=== PATIENT | female | born 1960 | race Caucasian/White ===

== ENCOUNTER → 2019-02-03 | Outpatient (CLI) | payer OTHER ==
--- NOTE | 2019-02-03 15:03 | NM ---
EXAMINATION TYPE: NM hepatobiliary w CCK DATE OF EXAM: 02/03/2019 COMPARISON: NONE HISTORY: Chronic cholecystitis per order. Epigastric and abdominal pain with increased appetite heart burn and reflux-like symptoms per patient. TECHNIQUE: After the intravenous administration of 5.0 mCi Tc 99m Mebrofenin hepatobiliary scintigrap hy is performed. Immediate images post injection. FINDINGS: There is satisfactory initial accumulation of tracer by the liver. The gallbladder is visualized wit hin 15 minutes. The small bowel activity is noted within 20 minutes. At one hour CCK was administer ed, patient was injected with 1.32 mcg of Kinevac, and gallbladder ejection fraction is calculated at 93 %, not deviated from the normal range. Therefore there is no scintigraphic evidence of cystic or common bile duct obstruction to suggest acute cholecystitis . Overall elevated ejection fraction is consistent with chronic cholecystitis and/or gallbladder dyskinesia. IMPRESSION: Ejection fraction is 93%, elevated from the normal range, scintigraphic findings correlat e with underlying gallbladder dyskinesia.
== END | disposition home or self-care (01) ==
LOC: RADNMMAIN 13:07
PROVIDERS: ATTEND Surgery
DX: K81.1 Chronic cholecystitis (principal)
CPT/HCPCS: 78227; A9537; J2805

== ENCOUNTER 2019-02-10 08:04 | Day surgery (SDC) | payer OTHER ==
[2019-02-05 16:24] VITALS: BMI 24.0
[~2019-02-10 08:04] MED LIST: DEXAMETHASONE SOD PHOSPHATE 10 MG/ML 1 ML VIAL IV ONE; HEPARIN SODIUM,PORCINE 5,000 UNIT/ML 1 ML VIAL SQ ONE; LACTATED RINGERS 1,000 ML IV SCH; LIDOCAINE 1% 20 ML VIAL (10MG/ML) FOR IV START INTRADERMA PRN; ONDANSETRON 4 MG/2 ML VIAL IVP ONE; SCOPOLAMINE 1.5MG/72HR PATCH TRANSDERM ONE; ceFAZolin IN SWFI 2 GM/20 ML SYRINGE IVP ONE
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
[2019-02-10] MEDS ORDERED: SUCCINYLCHOLINE CHLORIDE 100 MG/5 ML SYR IV ONE (09:13)
[2019-02-10] MEDS ORDERED: fentaNYL (PF) 50 MCG/ML 2 ML AMP ONE (09:13)
[2019-02-10] MEDS ORDERED: PROPOFOL 10 MG/ML 20 ML VIAL IV ONE (09:13)
[2019-02-10] MEDS ORDERED: ePHEDrine SULFATE/0.9% NACL/PF 50 MG/5 ML SYRINGE IV ONE (09:13)
[2019-02-10] MEDS ORDERED: LIDOCAINE 1% INJ 10MG/ML (20 ML MDV) ONE (09:13)
[2019-02-10] MEDS ORDERED: BUPIVACAINE-EPI 0.5%-1:200,000 10 ML VIAL SQ ONE (09:39)
[2019-02-10 10:19] VITALS: TEMP 97
--- NOTE | 2019-02-10 10:26 | P.OP ---
Date of Procedure: 02/10/19 Preoperative Diagnosis: Cholecystitis Postoperative Diagnosis: Cholecystitis Procedure(s) Performed: Laparoscopic cholecystectomy Anesthesia: ALEN Surgeon: Edgar Miles Estimated Blood Loss (ml): 5 Pathology: other (Gallbladder) Condition: stable Disposition: PACU Description of Procedure: The patient was placed on the operating table. The patient received a general endotracheal tube anesthesia. The patients abdomen was prepped and draped in the usual sterile fashion. Through an infraumbilical stab incision, the fascia of the anterior abdominal wall was grasped with a pair of Kochers and then the Veress needle was placed in the peritoneal cavity. Position of the Veress needle was confirmed with positive drop test. The abdomen was then insufflated. After adequate insufflation, the 10 mm trocar was placed in the peritoneal cavity. Following this the laparoscope was placed in the peritoneal cavity. The patient was placed in the head-up, right side up position and then a 5 mm trocar was placed in the right lateral and right subcostal position under direct visualization. A 8 mm trocar was placed in the epigastric position. The gallbladder was grasped in the fundus and infundibulum. Traction on the gallbladder was placed in the lateral and the cephalad positions. The triangle of Calot was visualized.. The cystic duct was bluntly dissected until the union of the cystic duct and common bile duct was seen. A critical view of safety was achieved. The cystic duct was then divided and sealed with the Harmonic scissors. A PDS Endoloop was then placed throughout the cystic duct stump. The cystic artery divided and sealed with the Harmonic scissors. The gallbladder was then removed from the liver bed using Harmonic scissors. The gallbladder was then extracted through the epigastric port site. Operative field was checked for any bleeding spots and Harmonic scissors was used to coagulate the liver bed. The abdomen was irrigated. The trocars were removed. The skin was closed using interrupted 3-0 Vicryl suture. Dermabond dressing were applied. The patient tolerated the procedure well.
[2019-02-10] MEDS: HYDROmorphone 0.5 MG/0.5 ML SYRINGE IVP PRN ×2 (10:37→10:42)
[2019-02-10 11:07] VITALS: RESP 18
[2019-02-10 11:49] VITALS: BP 127/88; PULSE 88
== END 2019-02-10 12:13 | disposition home or self-care (01) ==
LOC: OR 08:04
PROVIDERS: ATTEND Surgery
DX: K81.1 Chronic cholecystitis (principal); J44.9 Chronic obstructive pulmonary disease, unspecified; K21.9 Gastro-esophageal reflux disease without esophagitis; E78.5 Hyperlipidemia, unspecified; I10 Essential (primary) hypertension; E07.9 Disorder of thyroid, unspecified; M54.10 Radiculopathy, site unspecified; Z79.82 Long term (current) use of aspirin; Z79.890 Hormone replacement therapy; Z79.891 Long term (current) use of opiate analgesic; Z79.899 Other long term (current) drug therapy; Z96.1 Presence of intraocular lens; Z86.718 Personal history of other venous thrombosis and embolism; Z87.820 Personal history of traumatic brain injury; Z87.891 Personal history of nicotine dependence; Z88.5 Allergy status to narcotic agent; Z88.8 Allergy status to other drugs, medicaments and biological substances
CPT/HCPCS: 88304; 47562; J1644; J1100; J2405; J2001; J3010; J0330; J2704; J1170; J0690

== ENCOUNTER → 2019-06-26 | Outpatient (CLI) | payer OTHER ==
--- NOTE | 2019-06-30 10:20 | MM ---
Reason for exam: screening (asymptomatic). Last mammogram was performed 1 year and 1 month ago. History: Patient is postmenopausal. Physical Findings: A clinical breast exam by your physician is recommended on an annual basis and results should be correlated with mammographic findings. MG 3D Screening Mammo W/Cad Bilateral CC and MLO view(s) were taken. Prior study comparison: May 13, 2018, mammogram. May 10, 2017, mammogram. There are scattered fibroglandular densities. No significant changes when compared with prior studies. ASSESSMENT: Benign, BI-RAD 2 RECOMMENDATION: Routine screening mammogram of both breasts in 1 year.
== END | disposition home or self-care (01) ==
LOC: RADMAMWWP 13:20
PROVIDERS: ATTEND Family Medicine
DX: Z12.31 Encounter for screening mammogram for malignant neoplasm of breast (principal)
CPT/HCPCS: 77063; 77067

== ENCOUNTER 2019-07-03 22:26 | Observation (INO) | payer OTHER ==
[2019-07-03] MEDS ORDERED: MORPHINE SULFATE 4 MG/ML SYRINGE IV STA (23:12)
[2019-07-03] MEDS ORDERED: SODIUM CHLORIDE 0.9% 1,000 ML IV STA (23:12)
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
[2019-07-03 23:39] LABS: Basophils % (A) 1 %; Eosinophils # (A) 0.2 k/uL (0-0.7); Eosinophils % (A) 9 %; HCT 38.5 % (34.0-46.0); HGB 12.6 gm/dL (11.4-16.0); Lymphocytes # (A) 0.9 k/uL (1.0-4.8); Lymphocytes % (A) 32 %; MCH 30.5 pg (25.0-35.0); MCHC 32.8 g/dL (31.0-37.0); MCV 93.1 fL (80.0-100.0); Mean Platelet Volume 6.8; Monocytes # (A) 0.2 k/uL (0-1.0); Monocytes % (A) 5 %; Neutrophils # (A) 1.4 k/uL (1.3-7.7); Neutrophils % (A) 50 %; Platelet Count 160 k/uL (150-450); RBC 4.14 m/uL (3.80-5.40); RDW 13.2 % (11.5-15.5); WBC 2.7 k/uL (3.8-10.6)
[2019-07-03 23:47] LABS: INR 0.9 (<1.2); Partial Thromboplastin Time 24.3 sec (22.0-30.0)
[2019-07-03 23:52] LABS: ALT 39 U/L (9-52); AST 33 U/L (14-36); African American GFR (CKD) >90 (>60 ml/min/1.73 sqM); Alkaline Phosphatase 64 U/L (38-126); Anion Gap 9 mmol/L; Blood Urea Nitrogen 15 mg/dL (7-17); Calcium 9.2 mg/dL (8.4-10.2); Carbon Dioxide 28 mmol/L (22-30); Chloride 102 mmol/L (98-107); Glucose 118 mg/dL (74-99); Magnesium 2.1 mg/dL (1.6-2.3); Sodium 139 mmol/L (137-145); Total Bilirubin 0.3 mg/dL (0.2-1.3); Total Protein 6.8 g/dL (6.3-8.2)
--- NOTE | 2019-07-04 00:42 | CT ---
History: ITS.REASON CT Reason: pain Exam: CTA CHEST MIP images obtained Technique more: DLP is 1321.3 mGy-cm. Technique more: This CT exam was performed using one or more of the following dose reduction techniques: automated exposure control, adjustment of the mA and/or kV according to patient size, and/or use of iterative reconstruction technique. Comparison: None available FINDINGS: No evidence of filling defect to suggest pulmonary embolism. Ectatic thoracic aorta appears within limits. No pericardial or pleural effusion. Central airways are patent without focal consolidation. Basilar atelectasis, mild pulmonary emphysema and chronic interstitial changes. Thoracolumbar scoliosis, spondylosis, discogenic change. IMPRESSION: No evidence of filling defect to suggest pulmonary embolism. Central airways are patent without focal consolidation. Basilar atelectasis, mild pulmonary emphysema and chronic interstitial changes.
--- NOTE | 2019-07-04 00:52 | CT ---
History: ITS.REASON CT Reason: pain Exam: CT ABDOMEN + PELVIS With Contrast Technique more: DLP is 1321.3 mGy-cm. Technique more: This CT exam was performed using one or more of the following dose reduction techniques: automated exposure control, adjustment of the mA and/or kV according to patient size, and/or use of iterative reconstruction technique. Comparison: None available FINDINGS: Abdominal solid organs and abdominal aorta appear within limits. Aortoiliac atherosclerotic calcification. Gallbladder is not identified. No bowel dilation or free air. Moderate proximal colonic stool without wall thickening or pericolonic inflammatory change. The appendix appears within limits without secondary signs. The bladder appears within limits. No free fluid. The right ovary is not well distinguished from adjacent bowel. The left ovary and uterus appear within limits. Thoracolumbar scoliosis, spondylosis, discogenic change. Grade 1 anterolisthesis L4 on L5 with bilateral foraminal stenosis. IMPRESSION: No evidence of acute process. Moderate proximal colonic stool without wall thickening or pericolonic inflammatory change.
[2019-07-04] MEDS ORDERED: ASPIRIN 81 MG PO STA (01:10)
[2019-07-04] MEDS ORDERED: MORPHINE SULFATE 4 MG/ML SYRINGE IV PRN (01:10)
[2019-07-04] MEDS ORDERED: NITROGLYCERIN SL TABS 0.4 MG TAB SUBLINGUAL PRN (01:10)
[2019-07-04] MEDS ORDERED: ASPIRIN 81 MG PO SCH (10:45)
[2019-07-04] MEDS: AMOXIC-POT CLAV 875-125MG 1 EACH TAB PO SCH ×2 (11:42→20:38)
[2019-07-04] MEDS: MUPIROCIN 2% OINT 22 GM TUBE TOPICAL SCH ×3 (11:42→20:38)
[2019-07-04] MEDS: CEPHALEXIN 500 MG CAP PO SCH ×4 (11:43→20:38)
[2019-07-04] MEDS ORDERED: LEVOTHYROXINE 75 MCG TAB PO ONE (13:31)
[2019-07-04] MEDS ORDERED: NIFEdipine XL 30 MG TAB.ER.24 PO STA (13:31)
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
[2019-07-04] MEDS: PANTOPRAZOLE 40 MG TABLET PO SCH (17:15)
[2019-07-04 17:39] LABS: Basophils # (A) 0.1 k/uL (0-0.2); Basophils % (A) 2 %; Eosinophils # (A) 0.2 k/uL (0-0.7); Eosinophils % (A) 6 %; HCT 41.2 % (34.0-46.0); HGB 13.1 gm/dL (11.4-16.0); Lymphocytes # (A) 0.9 k/uL (1.0-4.8); Lymphocytes % (A) 27 %; MCH 30.7 pg (25.0-35.0); MCHC 31.7 g/dL (31.0-37.0); MCV 96.8 fL (80.0-100.0); Monocytes # (A) 0.2 k/uL (0-1.0); Monocytes % (A) 6 %; Neutrophils # (A) 1.7 k/uL (1.3-7.7); Neutrophils % (A) 54 %; Platelet Count 154 k/uL (150-450); RBC 4.25 m/uL (3.80-5.40); RDW 13.4 % (11.5-15.5); WBC 3.2 k/uL (3.8-10.6)
[2019-07-04 17:52] LABS: ALT 49 U/L (9-52); AST 42 U/L (14-36); African American GFR (CKD) >90 (>60 ml/min/1.73 sqM); Albumin 3.9 g/dL (3.5-5.0); Alkaline Phosphatase 66 U/L (38-126); Amylase 146 U/L (30-110); Anion Gap 4 mmol/L; Blood Urea Nitrogen 12 mg/dL (7-17); Calcium 9.1 mg/dL (8.4-10.2); Carbon Dioxide 32 mmol/L (22-30); Chloride 106 mmol/L (98-107); Glucose 94 mg/dL (74-99); Sodium 142 mmol/L (137-145); Total Bilirubin 0.3 mg/dL (0.2-1.3); Total Protein 6.9 g/dL (6.3-8.2)
[2019-07-04] MEDS: BACLOFEN 10 MG TAB PO SCH (20:38)
[2019-07-04] MEDS: GABAPENTIN 100 MG CAP PO SCH (20:38)
--- NOTE | 2019-07-04 22:59 | CONS ---
CONSULTATION DATE OF SERVICE: Alma Sifuentes is a 59-year-old lady who comes into the hospital with episode of chest discomfort. She apparently had an abdominal discomfort, then had some chest pressure. The pain lasted about 15 seconds or so and kept coming and going. Sometimes it was sharp in nature. She felt concerned and came into the hospital. 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 Her pain initially was on the right side of the chest, then went into the left shoulder and in the abdomen and also had an episode of nausea. Her lipase is elevated. She has no further chest pain. EKG is unremarkable. She is resting comfortably without symptoms. PAST MEDICAL HISTORY: Past medical history is remarkable for: 1. COPD. 2. Hypertension. 3. Hyperlipidemia. 4. Hypothyroidism. 5. Gastroesophageal reflux disease. 6. She is status post cholecystectomy. 7. Orthopedic surgery. 8. Tonsillectomy. MEDICATIONS: Medications at home include: 1. Aspirin. 2. Gabapentin. 3. Levothyroxine 75 mcg daily. 4. Mevacor 20 mg daily. 5. Magnesium supplements. 6. Nifedipine 30 mg daily. 7. Calcium supplements. 8. Turmeric root. ALLERGIES: Allergic to VERSED and CODEINE. PHYSICAL EXAMINATION: Blood pressure is 128/70. Pulse rate is 68 per minute, regular. HEENT unremarkable. Fundus was not examined by me. Neck is supple. No JVD. I do not hear a carotid bruit. There is no thyromegaly. Heart exam reveals S1, S2 heard normally. No rub, murmur or gallop. Lungs are clear. Abdomen is soft, nontender. Lower extremities reveal normal pulses. No edema. Central nervous system is normal EKG revealed sinus mechanism, no acute changes. LABORATORY DATA: Laboratory data revealed unremarkable troponins, elevated lipase. IMPRESSION: 1. Atypical chest pain. 2. Apparently per patient negative stress test within the last year or so. I will verify and look at the stress test report from [place]. 3. Hypertension. 4. Hyperlipidemia. 5. Hypothyroidism. 6. Abdominal discomfort, probably gastritis or pancreatitis, which has resolved. RECOMMENDATIONS: No intervention is necessary from a cardiac standpoint. Patient can safely be discharged and follow up with her ditch worker and PCP. I will see her as needed. Thank you very much for the consult. CELINE / FADUMO: [id number] /
[2019-07-05] MEDS: PANTOPRAZOLE 40 MG TABLET PO SCH (05:17)
[2019-07-05 06:00] LABS: Cholesterol 171 mg/dL (<200); HDL Cholesterol 44 mg/dL (40-60); LDL Cholesterol,Calculated 106 mg/dL (0-99); Triglycerides 103 mg/dL (<150)
[2019-07-05] MEDS ORDERED: LEVOTHYROXINE 75 MCG TAB PO SCH (06:30)
[2019-07-05] MEDS: AMOXIC-POT CLAV 875-125MG 1 EACH TAB PO SCH (08:14)
[2019-07-05] MEDS: GABAPENTIN 100 MG CAP PO SCH (08:14)
[2019-07-05] MEDS: CEPHALEXIN 500 MG CAP PO SCH (08:14)
[2019-07-05] MEDS: MUPIROCIN 2% OINT 22 GM TUBE TOPICAL SCH (08:14)
[2019-07-05] MEDS: BACLOFEN 10 MG TAB PO SCH (08:14)
[2019-07-05 08:19] VITALS: BP 104/74; PULSE 72; RESP 18; TEMP 97.6
[2019-07-05] MEDS ORDERED: NIFEdipine XL 30 MG TAB.ER.24 PO SCH (09:00)
[2019-07-05] MEDS ORDERED: ASPIRIN 81 MG PO SCH (09:00)
[2019-07-05] MEDS ORDERED: LORATADINE 10 MG TAB PO SCH (09:00)
[2019-07-05] MEDS ORDERED: ASPIRIN 325 MG TAB PO SCH (09:00)
--- NOTE | 2019-07-05 17:33 | DS ---
DISCHARGE SUMMARY CHIEF COMPLAINT: Chest pain, abdominal pain and elevated lipase. HISTORY OF PRESENT ILLNESS AND PHYSICAL EXAM: Details of this lady's history and physical can be found in the initial workup. LABORATORY STUDIES: While she was in a hospital she had laboratory studies, details of which can be found in the laboratory section of chart. COURSE IN HOSPITAL: After admission, she was placed on bedrest, started on intravenous fluids and she was seen by Cardiology. Cardiac workup and cardiac enzymes as well as EKGs were all normal. Her lipase was repeated and it was trending down slightly. It was felt that she could go home on the , but she will continue follow up as an outpatient with further evaluations of her pancreas. FINAL DIAGNOSES: 1. Chest pain, noncardiac. 2. Pancreatitis. 3. Cellulitis of the lower legs. OPERATION: None. CONSULTATION: Cardiology. She is improved. MMMERCEDES / IJN: [id number] /
== END 2019-07-05 13:12 | disposition home or self-care (01) ==
LOC: EC 22:26 → 3SCARD 07-04 01:10
PROVIDERS: ADMIT Family Medicine; ATTEND Family Medicine
DX: R07.89 Other chest pain (principal); L03.115 Cellulitis of right lower limb; L03.116 Cellulitis of left lower limb; K85.90 Acute pancreatitis without necrosis or infection, unspecified; R00.2 Palpitations; M25.512 Pain in left shoulder; I10 Essential (primary) hypertension; E78.00 Pure hypercholesterolemia, unspecified; E78.5 Hyperlipidemia, unspecified; E03.9 Hypothyroidism, unspecified; K21.9 Gastro-esophageal reflux disease without esophagitis; J44.9 Chronic obstructive pulmonary disease, unspecified; Z86.718 Personal history of other venous thrombosis and embolism; Z87.891 Personal history of nicotine dependence; Z79.82 Long term (current) use of aspirin; Z79.899 Other long term (current) drug therapy; Z79.890 Hormone replacement therapy; Z88.5 Allergy status to narcotic agent; Z88.8 Allergy status to other drugs, medicaments and biological substances; Z90.49 Acquired absence of other specified parts of digestive tract; Z96.1 Presence of intraocular lens; Z83.3 Family history of diabetes mellitus; Z81.8 Family history of other mental and behavioral disorders
CPT/HCPCS: 96376; 96361 ×2; 96374; 99285; 36415; 93005; 83880; 80061; 80053 ×2; 82150; 83690 ×2; 83735; 84484 ×2; 85025 ×2; 85610; 85730; 71275; 74177; G0378 ×2; J2270 ×2; Q9967

== ENCOUNTER → 2020-09-09 | Outpatient (CLI) | payer OTHER ==
--- NOTE | 2020-09-13 11:27 | MM ---
Reason for exam: screening (asymptomatic). Last mammogram was performed 1 year and 2 months ago. History: Patient is postmenopausal. Physical Findings: A clinical breast exam by your physician is recommended on an annual basis and results should be correlated with mammographic findings. MG 3D Screening Mammo W/Cad Bilateral CC and MLO view(s) were taken. Prior study comparison: June 26, 2019, bilateral MG 3d screening mammo w/cad. May 13, 2018, mammogram. There are scattered fibroglandular densities. No significant changes when compared with prior studies. ASSESSMENT: Negative, BI-RAD 1 RECOMMENDATION: Routine screening mammogram of both breasts in 1 year.
== END | disposition home or self-care (01) ==
LOC: RADMAMWWP 15:12
PROVIDERS: ATTEND Family Medicine
DX: Z12.31 Encounter for screening mammogram for malignant neoplasm of breast (principal)
CPT/HCPCS: 77063; 77067

== ENCOUNTER → 2021-09-15 | Outpatient (CLI) | payer OTHER ==
--- NOTE | 2021-09-16 13:53 | MM ---
Reason for exam: screening (asymptomatic). Last mammogram was performed 1 year ago. History: Patient is postmenopausal. Physical Findings: A clinical breast exam by your physician is recommended on an annual basis and results should be correlated with mammographic findings. MG 3D Screening Mammo W/Cad Bilateral CC and MLO view(s) were taken. Prior study comparison: September 09, 2020, bilateral MG 3d screening mammo w/cad. June 26, 2019, bilateral MG 3d screening mammo w/cad. There are scattered fibroglandular densities. There is no discrete abnormality. ASSESSMENT: Negative, BI-RAD 1 RECOMMENDATION: Routine screening mammogram of both breasts in 1 year.
== END | disposition home or self-care (01) ==
LOC: RADMAMWWP 14:37
PROVIDERS: ATTEND Family Medicine
DX: Z12.31 Encounter for screening mammogram for malignant neoplasm of breast (principal); Z78.0 Asymptomatic menopausal state
CPT/HCPCS: 77063; 77067

== ENCOUNTER → 2021-11-07 | Outpatient (CLI) | payer OTHER | END | disposition home or self-care (01) | LOC: LABWHC1 14:54 | PROVIDERS: ATTEND Nurse Practitioner | DX: E03.9 Hypothyroidism, unspecified (principal) | CPT/HCPCS: 36415; 84443 ==

== ENCOUNTER → 2022-09-11 | Outpatient (CLI) | payer OTHER ==
[2022-09-11 17:54] LABS: Basophils # (A) 0.03 X 10*3/uL (0.00-0.10); Basophils % (A) 0.9 %; HCT 41.7 % (37.2-46.3); HGB 14.2 g/dL (12.0-15.0); Immature Grans, Automated 0.3 %; Lymphocytes # (A) 1.27 X 10*3/uL (0.90-5.00); MCH 31.4 pg (27.0-32.0); MCHC 34.1 g/dL (32.0-37.0); MCV 92.3 fL (80.0-97.0); Mean Platelet Volume 10.5 fL (9.5-12.2); Monocytes # (A) 0.26 X 10*3/uL (0.20-1.00); Monocytes % (A) 7.8 %; NRBC Per 100 WBC 0 /100 WBCS (0.0-0.0); Neutrophils # (A) 1.67 X 10*3/uL (1.80-7.70); Platelet Count 210 X 10*3/uL (140-440); RBC 4.52 X 10*6/uL (4.10-5.20); RDW 12.7 % (11.5-14.5); WBC 3.34 X 10*3/uL (4.50-10.00)
[2022-09-11 18:07] LABS: ALT 26 U/L (8-44); AST 27 U/L (13-35); African American GFR (CKD) 101.9 (60.0-200.0); Albumin 4.6 g/dL (3.8-4.9); Albumin/Globulin Ratio 1.87 (1.60-3.17); Alkaline Phosphatase 70 U/L (41-126); BUN/Creat Ratio 15.88 Ratio (12.00-20.00); Blood Urea Nitrogen 11.5 mg/dL (9.0-27.0); Calcium 9.6 mg/dL (8.7-10.3); Carbon Dioxide 28.7 mmol/L (20.0-27.5); Chloride 103 mmol/L (96-109); Chol/HDL Ratio 3.13 Ratio; Globulin 2.4 g/dL (1.6-3.3); Glucose 111 mg/dL (70-110); LDL Cholesterol,Calculated 94.4 mg/dL (0.0-131.0); Non-African American GFR(CKD) 87.9 (60.0-200.0); Potassium 4.1 mmol/L (3.5-5.5); Sodium 140 mmol/L (135-145)
== END | disposition home or self-care (01) ==
LOC: LABWHC1 11:20
PROVIDERS: ATTEND Internal Medicine
DX: E78.5 Hyperlipidemia, unspecified (principal); E03.9 Hypothyroidism, unspecified
CPT/HCPCS: 36415; 80053; 80061; 84439; 84443; 85025

== ENCOUNTER → 2022-09-15 | Outpatient (CLI) | payer OTHER ==
[2022-09-15 15:33] LABS: Basophils % (A) 1 %; Eosinophils # (A) 0.1 k/uL (0-0.7); Eosinophils % (A) 3 %; HCT 40.9 % (34.0-46.0); Lymphocytes # (A) 1.2 k/uL (1.0-4.8); Lymphocytes % (A) 38 %; MCH 31.6 pg (25.0-35.0); MCHC 34.2 g/dL (31.0-37.0); MCV 92.5 fL (80.0-100.0); Monocytes # (A) 0.2 k/uL (0-1.0); Monocytes % (A) 5 %; Neutrophils # (A) 1.6 k/uL (1.3-7.7); Neutrophils % (A) 49 %; Platelet Count 190 k/uL (150-450); RBC 4.42 m/uL (3.80-5.40); RDW 12.4 % (11.5-15.5); WBC 3.2 k/uL (3.8-10.6)
[2022-09-16 02:38] LABS: Protein, Total 6.6 g/dL (6.2-8.2)
== END | disposition home or self-care (01) ==
LOC: LABWHC1 14:08
PROVIDERS: ATTEND Internal Medicine
DX: D72.819 Decreased white blood cell count, unspecified (principal); R73.9 Hyperglycemia, unspecified
CPT/HCPCS: 36415; 83036; 84165; 85025

== ENCOUNTER → 2022-09-19 | Outpatient (CLI) | payer OTHER ==
--- NOTE | 2022-09-19 13:59 | BD ---
EXAMINATION TYPE: Axial Bone Density DATE OF EXAM: 09/19/2022 COMPARISON: NONE CLINICAL HISTORY: 62 year old Female. ICD-10 CODE: Z78.0 ASYMPTOMATIC MENOPAUSAL STATE Height: 62.5 Weight: 170.2 FRAX RISK QUESTIONS: Alcohol (3 or more units per day): no Family History (Parent hip fracture): no Glucocorticoids (More than 3mos): no (Ex: prednisone, prednisolone, methylprednisolone, dexamethasone, and hydrocortisone). History of Fracture in Adulthood: yes Secondary Osteoporosis: 1. Type 1 Diabetes: no 2. Hyperthyroidism: no 3. Menopause before 45: no 4. Malnutrition: no 5. Chronic liver disease: no Rheumatoid Arthritis: no Current Tobacco Use: no RISK FACTORS HISTORY OF: Surgery to Spine/Hip(right/left)/Wrist (right/left): no Family History of Osteoporosis: no Active: no Diet low in dairy products/other sources of calcium: yes Postmenopausal woman: yes Lost more than 2 inches in height since high school: no MEDICATIONS: Thyroid Medications: thyroid How Lon years Additional History: EXAM MEASUREMENTS: Bone mineral densitometry was performed using the [employer] System. Bone mineral density as measured about the Lumbar spine is: ----- L1-L4(G/cm2): 1.609 T Score Values are as follows: ----- L1: 3.6 ----- L2: 3.1 ----- L3: 4.7 ----- L4: 3.0 ----- L1-L4: 3.6 Bone mineral density : baseline Bone mineral density about the R hip (g/cm2): 0.923 Bone mineral density about the L hip (g/cm2): 0.942 T Score values are as follows: -----R Neck: -0.8 -----L Neck: -0.7 -----R Total: -0.4 -----L Total: -0.7 Bone mineral density : baseline FRAX%s: The graph provided illustrates a 12.3% chance for a major osteoporotic fx and a 0.7% chance f or the hips probability for fx in 10 years time. IMPRESSION: Normal (Values between +1 and -1 indicate normal bone mass). Consider repeating this study in 5 year s or sooner if there is some new clinical indication. NOTE: T-SCORE=SD OF THE YOUNG ADULT MEAN.
--- NOTE | 2022-09-20 17:46 | MM ---
Reason for Exam: Screening (asymptomatic). Last screening mammogram was performed 12 month(s) ago. Patient History: Menarche at age 10. First Full-Term at age 21. Postmenopausal. Patient has history of breast feeding. Risk Values: Justina 5 year model risk: 1.4%. NCI Lifetime model risk: 5.8%. Prior Study Comparison: 06/26/2019 Bilateral Screening Mammogram, [facility]. 09/09/2020 Bilateral Screening Mammogram, [facility]. 09/15/2021 Bilateral Screening Mammogram, [facility]. Tissue Density: There are scattered fibroglandular densities. Findings: Analyzed By CAD. No significant interval changes. Pattern appears stable. No suspicious groups of microcalcifications, spiculated or lobular masses, architectural distortion or other secondary signs of malignancy are mammographically apparent. Overall Assessment: Benign, BI-RAD 2 Management: Screening Mammogram of both breasts in 1 year. A negative mammogram report should not preclude additional follow up of suspicious palpable abnormalities. Patient should continue monthly self breast exam. A clinical breast exam by your physician is recommended on an annual basis and results should be correlated with mammographic findings. Electronically signed and approved by: Marc Balderas D.O. Radiologis
== END | disposition home or self-care (01) ==
LOC: RADMAMWWP 13:00
PROVIDERS: ATTEND Internal Medicine
DX: Z12.31 Encounter for screening mammogram for malignant neoplasm of breast (principal); Z13.820 Encounter for screening for osteoporosis; Z78.0 Asymptomatic menopausal state
CPT/HCPCS: 77063; 77067; 77080

== ENCOUNTER → 2022-10-31 | Outpatient (CLI) | payer OTHER ==
--- NOTE | 2022-10-31 15:24 | XR ---
EXAMINATION TYPE: XR shoulder complete RT DATE OF EXAM: 10/31/2022 3:14 PM INDICATION: Patient age:Female; 62 years old; Reason for study: M25.511 PAIN IN RIGHT SHOULDER; COMPARISON: None TECHNIQUE: The right shoulder was examined in AP, internally rotated and scapular Y projections. . FINDINGS: No evidence of acute osseous pathology, joint dislocation, or soft tissue swelling. There is joint sp vale narrowing with subchondral cystic formation and osteophytosis involving the right shoulder. The r emaining portions of the visualized chest are unremarkable. IMPRESSION: 1. No acute osseous pathology. 2. Mild to moderate osteoarthritic changes of the right shoulder.
== END | disposition home or self-care (01) ==
LOC: RADXRMAIN 14:58
PROVIDERS: ATTEND Internal Medicine
DX: M19.011 Primary osteoarthritis, right shoulder (principal)

== ENCOUNTER 2023-01-12 13:11 | Day surgery (SDC) | payer OTHER ==
[2023-01-09 11:29] VITALS: BMI 27.8
[~2023-01-12 13:11] MED LIST changes: -DEXAMETHASONE SOD PHOSPHATE 10 MG/ML 1 ML VIAL IV ONE; -HEPARIN SODIUM,PORCINE 5,000 UNIT/ML 1 ML VIAL SQ ONE; +LIDOCAINE 1% (10MG/ML) FOR IV START INTRADERMA PRN; -LIDOCAINE 1% 20 ML VIAL (10MG/ML) FOR IV START INTRADERMA PRN; -ONDANSETRON 4 MG/2 ML VIAL IVP ONE; -SCOPOLAMINE 1.5MG/72HR PATCH TRANSDERM ONE; -ceFAZolin IN SWFI 2 GM/20 ML SYRINGE IVP ONE
[2023-01-12 13:48] VITALS: TEMP 97.4
--- NOTE | 2023-01-12 14:21 | P.PCN ---
Date of Procedure: 01/12/23 Procedure(s) Performed: BRIEF HISTORY: Patient is a 63-year-old, pleasant, white female scheduled for an upper endoscopy as a part of evaluation of lungs any history of GERD . she was several years duration. Presently on Protonix 40 mg twice daily and was recently started on Carafate 1 g 4 times daily and remains symptomatic. She also complaining of burning mouth syndrome for the last 1 month. PROCEDURE PERFORMED: Esophagogastroduodenoscopy. PREOPERATIVE DIAGNOSIS: long-standing history of GERD/burning mouth IV sedation per anesthesia. PROCEDURE: After informed consent was obtained, the patient was brought into the endoscopy unit. IV sedation was administered by Anesthesia under continuous monitoring. Initially the Olympus GIF-140 video endoscope was inserted into the mouth. Esophagus intubated without any difficulty. It was gradually advanced into the stomach and duodenum and carefully examined. The bulb and the second part of the duodenum appeared normal. The scope at this time was withdrawn to the stomach, adequately insufflated with air, and upon careful examination, mucosa of the antrum, had patchy areas of erythema mostly in the prepyloric area which was biopsied. Mucosa of the body, cardia and the fundus appeared normal. The scope was then withdrawn into the esophagus. The GE junction was located at 39 cm from the incisors. The esophagus appeared normal. There were no erosions or ulcerations seen or biopsies were done from the distal esophagus and the patient tolerated the procedure well. IMPRESSION: 1. Mild antral gastritis 2. Normal-appearing esophagus with no evidence of esophagitis. RECOMMENDATIONS: The findings of this examination were discussed with the patient as well as her family. She was advised to follow with the biopsy results. She will continue with Protonix 40 mg twice daily and follow antireflux measures. Continue with Carafate. 4 times daily. She'll be seen in office in 3-4 weeks.
[2023-01-12] MEDS ORDERED: PROPOFOL 10 MG/ML 20 ML VIAL IV ONE (14:25)
[2023-01-12] MEDS ORDERED: LIDOCAINE 2% INJ 20 MG/ML (2 ML VIAL) ONE (14:25)
[2023-01-12 15:10] VITALS: BP 122/82; PULSE 70; RESP 16
== END 2023-01-12 15:28 | disposition home or self-care (01) ==
LOC: ORWHC2ENDO 13:11
PROVIDERS: ATTEND Internal Medicine Gastroenterology
DX: K29.50 Unspecified chronic gastritis without bleeding (principal); K21.9 Gastro-esophageal reflux disease without esophagitis; I10 Essential (primary) hypertension; E78.5 Hyperlipidemia, unspecified; J44.9 Chronic obstructive pulmonary disease, unspecified; E07.9 Disorder of thyroid, unspecified; Z79.890 Hormone replacement therapy; Z79.899 Other long term (current) drug therapy
CPT/HCPCS: 43239; J2704; J2001; 88305

== ENCOUNTER → 2023-02-07 | Outpatient (CLI) | payer MEDICARE, OTHER ==
[2023-02-07 13:31] LABS: Basophils % (A) 1 %; Eosinophils # (A) 0.1 k/uL (0-0.7); Eosinophils % (A) 3 %; HCT 39.4 % (34.0-46.0); HGB 13.2 gm/dL (11.4-16.0); Lymphocytes % (A) 32 %; MCH 30.9 pg (25.0-35.0); MCHC 33.6 g/dL (31.0-37.0); MCV 92.1 fL (80.0-100.0); Mean Platelet Volume 7.3; Monocytes # (A) 0.2 k/uL (0-1.0); Monocytes % (A) 6 %; Neutrophils # (A) 1.7 k/uL (1.3-7.7); Neutrophils % (A) 56 %; Platelet Count 206 k/uL (150-450); RBC 4.28 m/uL (3.80-5.40); RDW 12.4 % (11.5-15.5); WBC 3.1 k/uL (3.8-10.6)
[2023-02-07 13:32] LABS: ALT 22 U/L (4-34); AST 28 U/L (14-36); African American GFR (CKD) >90 (>60 ml/min/1.73 sqM); Albumin 4.1 g/dL (3.5-5.0); Albumin/Globulin Ratio 1.6; Alkaline Phosphatase 63 U/L (38-126); Anion Gap 3 mmol/L; Bilirubin,Unconjugated 0.6 mg/dL (0.0-1.1); Blood Urea Nitrogen 8 mg/dL (7-17); Calcium 9.2 mg/dL (8.4-10.2); Carbon Dioxide 35 mmol/L (22-30); Chloride 98 mmol/L (98-107); Globulin 2.5 g/dL; Glucose 108 mg/dL (74-99); Lipase 275 U/L (23-300); Magnesium 1.9 mg/dL (1.6-2.3); Non-African American GFR(CKD) >90 (>60 ml/min/1.73 sqM); Sodium 136 mmol/L (137-145); Total Bilirubin 0.6 mg/dL (0.2-1.3); Total Protein 6.6 g/dL (6.3-8.2)
[2023-02-07 13:49] LABS: T4, Free (Free Thyroxine) 1.05 ng/dL (0.78-2.19)
--- NOTE | 2023-02-07 14:33 | CT ---
EXAMINATION TYPE: CT abdomen pelvis wo/w con CT DLP: 906.4 mGycm, Automated exposure control for dose reduction was used. DATE OF EXAM: 02/07/2023 2:23 PM COMPARISON: CT abdomen and pelvis 07/04/2019 CLINICAL INDICATION:Female, 63 years old with history of R10.13; digestive irregularity TECHNIQUE: Standard CT of the abdomen and pelvis before and after the administration of 100 cc of I sovue 300 IV contrast material and oral contrast. Coronal and sagittal reformats were performed. FINDINGS: LOWER CHEST: Posterior dependent subsegmental atelectasis is noted. ABDOMEN LIVER: Subcentimeter left hepatic lobe hypoattenuating focus which is too small to accurately charact erize. GALLBLADDER AND BILE DUCTS: The gallbladder is surgically absent. No biliary duct dilatation. PANCREAS: Unremarkable. SPLEEN: Unremarkable. ADRENAL GLANDS: Unremarkable. KIDNEYS AND URETERS: No evidence of hydronephrosis or renal calculus. The kidneys enhance symmetrical ly. Contrast is demonstrated within both collecting systems on the delayed phase. PELVIS BLADDER: Unremarkable REPRODUCTIVE: Unremarkable. ABDOMEN & PELVIS STOMACH AND BOWEL: Stomach and duodenum are unremarkable. Mild amount of stool is present within the colon. The appendix is within normal limits. No focal wall thickening or stranding or inflammatory ch anges involving the bowel. Enteric contrast reaches the mid small bowel. No evidence of bowel obstruc tion. PERITONEUM: No evidence of pneumoperitoneum or free fluid. VASCULATURE: No evidence of aortic aneurysm. Tortuosity of the abdominal aorta. Mild atherosclerotic calcifications of the aorta and its branches. Few pelvic phleboliths. MUSCULOSKELETAL: No acute osseous abnormalities degenerative changes of the bilateral SI joints. Levo scoliotic curvature of the lumbar spine. Grade 1 anterolisthesis of L4 on L5 without evidence of pars defects. Lower lumbar spine facet arthropathy. Mild multilevel degenerative disc disease. LYMPH NODES: No gross evidence for lymphadenopathy. SOFT TISSUE/ABDOMINAL WALL: Small fat filled umbilical hernia. IMPRESSION: 1. No acute abdominal/pelvic process. 2. Mild colonic stool burden without wall thickening or pericolonic inflammatory change.
== END | disposition home or self-care (01) ==
LOC: RADCTMAIN 12:42
PROVIDERS: ATTEND Internal Medicine
DX: R10.13 Epigastric pain (principal); R19.4 Change in bowel habit
CPT/HCPCS: 84439; 80053; 82248; 83690; 83735; 84443; 85025; 83036; 74178; 36415; Q9967

== ENCOUNTER → 2023-05-15 | Outpatient (CLI) | payer MEDICARE, OTHER ==
--- NOTE | 2023-05-15 12:57 | XR ---
EXAMINATION TYPE: XR hand complete RT DATE OF EXAM: 05/15/2023 12:53 PM INDICATION: Patient age:Female; 63 years old; Reason for study: M79.641 Pain rt hand COMPARISON: None TECHNIQUE: Frontal, lateral and oblique views of the right hand were obtained. FINDINGS: Normal alignment of the visualized joints. No osseous erosions. Mild joint space with chuck nal spurring at the first and second digit DIP joints. No acute osseous pathology is identified. No evidence of soft tissue swelling. IMPRESSION: 1. No acute osseous pathology. 2. Mild osteoarthritic changes.
== END | disposition home or self-care (01) ==
LOC: RADXRMAIN 12:40
PROVIDERS: ATTEND Internal Medicine
DX: M19.041 Primary osteoarthritis, right hand (principal); M79.642 Pain in left hand

== ENCOUNTER → 2023-05-15 | Outpatient (CLI) | payer MEDICARE, OTHER ==
[2023-05-15 20:11] LABS: ALT 28 U/L (8-44); AST 29 U/L (13-35); Albumin 4.7 d/dL (3.8-4.9); Albumin/Globulin Ratio 2.24 Ratio (1.60-3.17); Alkaline Phosphatase 78 U/L (41-126); Blood Urea Nitrogen 6.4 mg/dL (9.0-27.0); Calcium 9.8 mg/dL (8.7-10.3); Carbon Dioxide 28.6 mmol/L (21.6-31.8); Chloride 102 mmol/L (96-109); Globulin 2.1 d/dL (1.6-3.3); Glucose 92 mg/dL (70-110); LDL Cholesterol,Calculated 80.1 mg/dL (0.0-131.0); Magnesium 2.2 mg/dL (1.5-2.4); Potassium 4.8 mmol/L (3.5-5.5); Rheumatoid Factor, Qnt <15 IU/mL (0-15); Sodium 140 mmol/L (135-145); T4, Free (Free Thyroxine) 1.25 ng/dL (0.80-1.80); Total Bilirubin 0.5 mg/dL (0.3-1.2); Total Protein 6.8 d/dL (6.2-8.2); Uric Acid 3.3 mg/dL (2.9-7.7); VLDL Calculation 11.52 mg/dL (5.00-40.00)
[2023-05-15 21:22] LABS: Basophils # (A) 0.05 X 10*3/uL (0.00-0.10); Basophils % (A) 1.8 %; Eosinophils # (A) 0.13 X 10*3/uL (0.04-0.35); Eosinophils % (A) 4.7 %; HCT 41.4 % (37.2-46.3); HGB 13.9 d/dL (12.0-15.0); Immature Grans, Automated 0 %; Lymphocytes % (A) 43.6 %; MCH 31.5 pg (27.0-32.0); MCHC 33.6 d/dL (32.0-37.0); MCV 93.9 FL (80.0-97.0); Mean Platelet Volume 9.6 FL (9.5-12.2); Monocytes % (A) 7.3 %; NRBC Per 100 WBC 0 X 10*3/uL (0.00-0.01); Neutrophils # (A) 1.17 X 10*3/uL (1.80-7.70); Neutrophils % (A) 42.6 %; Platelet Count 231 X 10*3/uL (140-440); RBC 4.41 X 10*6/uL (4.10-5.20); RDW 12.4 % (11.5-14.5); WBC 2.75 X 10*3/uL (4.50-10.00)
[2023-05-15 22:33] LABS: Anti-DNA, DS unit <1.0 IU/mL; DNA Double-Stranded Negative (Negative); Scleroderma SC-70 Ab <0.2 AI
[2023-05-15 22:43] LABS: Alternaria alternata IgE <0.10 kU/L; Aspergillus fumagatus IgE <0.10 kU/L; Birch IgE <0.10 kU/L; Cat Epith & Dander IgE <0.10 kU/L; Cladosporian herbarum IgE <0.10 kU/L; Clam IgE <0.10 kU/L; Cockroach IgE <0.10 kU/L; Codfish IgE <0.10 kU/L; Dermato. farinae IgE <0.10 kU/L; Dog Dander IgE <0.10 kU/L; Egg White IgE <0.10 kU/L; Elm IgE <0.10 kU/L; Maple (Box Elder) IgE <0.10 kU/L; Oak IgE <0.10 kU/L; Peanut IgE <0.10 kU/L; Ragweed,Common IgE <0.10 kU/L; Red Top (Bentgrass) IgE <0.10 kU/L; Scallop IgE <0.10 kU/L; Shrimp IgE <0.10 kU/L; Soybean IgE <0.10 kU/L; Walnut IgE (Food) <0.10 kU/L
== END | disposition home or self-care (01) ==
LOC: LABWHC1 11:41
PROVIDERS: ATTEND Internal Medicine
DX: Z00.00 Encounter for general adult medical examination without abnormal findings (principal); E03.9 Hypothyroidism, unspecified; J30.9 Allergic rhinitis, unspecified; M79.642 Pain in left hand; M79.641 Pain in right hand; R73.9 Hyperglycemia, unspecified
CPT/HCPCS: 36415; 80053; 80061; 82785; 83036; 83735; 84439; 84443; 84550; 85025; 86003; 86225; 86235; 86431

== ENCOUNTER → 2023-08-01 | Outpatient (CLI) | payer MEDICARE, OTHER ==
--- NOTE | 2023-08-01 12:04 | FL ---
EXAMINATION TYPE: FL barium swallow DATE OF EXAM: 08/01/2023 11:44 AM COMPARISON: None CLINICAL INDICATION:Female, 63 years old with history of J32.9 CHRONIC SINUSITIS, UNSPECIFIED; [facility], TECHNIQUE: The procedure was explained and patient history elicited. All patient questions were ans wered prior to start of procedure. Multiple spot fluoroscopic images of the esophagus were obtained a fter the oral ingestion of effervescent crystals and liquid barium as the contrast agent. Fluoroscopic time: 17 seconds Fluoroscopic images: 177 Total DAP: 2372.69 uGym2 FINDINGS: The esophagus demonstrates normal primary and secondary peristalsis. The esophageal mucosa is smooth without evidence of focal stricture, ulceration, or abnormal outpouching. No gastroesophageal reflu x disease was identified. No hiatal hernia identified. IMPRESSION: Normal esophagram.
--- NOTE | 2023-08-01 12:44 | CT ---
EXAMINATION TYPE: CT sinus wo con DATE OF EXAM: 08/01/2023 COMPARISON: None HISTORY: CHRONIC SINUSITIS CT DLP: 616 mGycm. Automated Exposure Control for Dose Reduction was Utilized. TECHNIQUE: CT scan of the sinuses is performed without contrast, axial images are obtained, coronal r eformatted images are also reviewed. FINDINGS: The paranasal sinuses including the frontal, ethmoid, sphenoid, and maxillary sinuses bila terally are well-aerated without abnormal opacification. There is mucoperiosteal thickening involving the maxillary sinuses. The ostiomeatal complex is patent bilaterally on the coronal images. Visualized portion of mastoid air cells show no abnormal opacification. The globes are intact bilate rally. Bilateral post surgical changes involving the calvarium. There is calcification in the level the fourth ventricle and encephalomalacia involving bilateral frontal lobes greater on the right. IMPRESSION: 1. The sinuses are clear and the ostiomeatal complex is patent bilaterally.
== END | disposition home or self-care (01) ==
LOC: RADUSWWP 10:59
PROVIDERS: ATTEND Otolaryngology
DX: J32.9 Chronic sinusitis, unspecified (principal); R05.9 Cough, unspecified; R13.10 Dysphagia, unspecified
CPT/HCPCS: 70486; 74220

== ENCOUNTER → 2023-10-03 | Outpatient (CLI) | payer MEDICARE, OTHER ==
--- NOTE | 2023-10-05 17:21 | MM ---
Reason for Exam: Screening (asymptomatic). Last mammogram was performed 1 year(s) and 1 month(s) ago. Patient History: Menarche at age 10. First Full-Term at age 21. Postmenopausal. Patient has history of breast feeding. Risk Values: Justina 5 year model risk: 1.5%. NCI Lifetime model risk: 5.6%. Prior Study Comparison: 09/09/2020 Bilateral Screening Mammogram, [facility]. 09/15/2021 Bilateral Screening Mammogram, [facility]. 09/19/2022 Bilateral MG 3D screening mammo w/cad, [facility]. Tissue Density: There are scattered fibroglandular densities. Findings: Analyzed By CAD. No significant interval change. Pattern appears symmetrical. No suspicious groups of microcalcifications, spiculated or lobular masses, architectural distortion or other secondary signs of malignancy are mammographically apparent. Overall Assessment: Negative, BI-RAD 1 Management: Screening Mammogram of both breasts in 1 year. A negative mammogram report should not preclude additional follow up of suspicious palpable abnormalities. Patient should continue monthly self breast exam. A clinical breast exam by your physician is recommended on an annual basis and results should be correlated with mammographic findings. Electronically signed and approved by: Marc Balderas D.O. Radiologis
== END | disposition home or self-care (01) ==
LOC: RADMAMWWP 14:30
PROVIDERS: ATTEND Internal Medicine
DX: Z12.31 Encounter for screening mammogram for malignant neoplasm of breast (principal); Z78.0 Asymptomatic menopausal state
CPT/HCPCS: 77063; 77067

== ENCOUNTER → 2023-12-11 | Outpatient (CLI) | payer MEDICARE, OTHER | END | disposition home or self-care (01) | LOC: LABPAT 14:18 | PROVIDERS: ATTEND Orthopaedic Surgery | DX: Z01.812 Encounter for preprocedural laboratory examination (principal); Z22.322 Carrier or suspected carrier of Methicillin resistant Staphylococcus aureus; M19.011 Primary osteoarthritis, right shoulder | CPT/HCPCS: 87070 ==

== ENCOUNTER → 2023-12-19 | Outpatient (CLI) | payer MEDICARE, OTHER ==
--- NOTE | 2023-12-19 13:47 | CTL ---
EXAMINATION TYPE: CT Low Dose Lung DATE OF EXAM: 12/19/2023 1:38 PM CLINICAL INDICATION:Female, 63 years old with history of Z12.2 LUNG CA SCREEN Z87.891 HISTORY NICOTI NE DEP; personal h/o tobacco use , history of tobacco use. COMPARISON: CT chest 12/07/2022. TECHNIQUE: Multiple axial non-contrast scans were obtained from approximately the lung apices through the upper abdomen. Coronal and sagittal reformatted images were obtained. Low dose technique was uti lized. CT DLP: 67.4 mGycm, Automated exposure control for dose reduction was used. CT Contrast: Contrast used: None Oral contrast used: None FINDINGS: ======== Lack of intravenous contrast and low dose technique limits the evaluation of the vascular and soft ti ssue structures. LUNGS: No evidence of pulmonary fibrosis. No evidence of focal consolidation, pneumothorax or pleural effusion. Centrilobular and paraseptal emphysematous changes are identified in the lungs. Nodules: RUL: None. RML: None. RLL: None. MARLON: None. LLL: None. AIRWAY: Patent and unremarkable. HEART: Size within normal limits. MEDIASTINUM: No gross evidence of adenopathy. VASCULATURE: Atherosclerotic calcifications are present throughout the aorta and its branches. MUSCULOSKELETAL: Moderate disc degeneration changes are present throughout the thoracolumbar spine. SOFT TISSUES/LYMPH NODES: Unremarkable. LOWER NECK: No significant findings. UPPER ABDOMEN: No significant findings. IMPRESSION: 1. No clinically significant pulmonary nodules. 2. Emphysematous changes of lungs. CT LUNG RAD AND CT CHEST RECOMMENDATION: Lung-Rad 1 Negative: Continue annual screening with LDCT in 12 months. S Modifier (other clinically significant findings): None Recommend smoking cessation (if current smoker), or continuation of smoking cessation (if prior smoke r). Annual screening for lung cancer with low-dose computed tomography is recommended in adults ages 55 to 77 years who have a 30 pack-year smoking history and currently smoke or have quit within the pa st 15 years. Screening should be discontinued once a person has not smoked for 15 years or develops a health problem that substantially limits life expectancy or the ability or willingness to have curat donald lung surgery.
== END | disposition home or self-care (01) ==
LOC: RADCTMAIN 12:40
PROVIDERS: ATTEND Internal Medicine
DX: Z12.2 Encounter for screening for malignant neoplasm of respiratory organs (principal); J98.4 Other disorders of lung; Z87.891 Personal history of nicotine dependence
CPT/HCPCS: 71271

== ENCOUNTER 2024-01-15 08:01 | Day surgery (SDC) | payer MEDICARE, OTHER ==
[2024-01-11 16:21] VITALS: BMI 25.2
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
[~2024-01-15 08:01] MED LIST changes: +HYDROmorphone 0.5 MG/0.5 ML SYRINGE IVP PRN; -LACTATED RINGERS 1,000 ML IV SCH; +TRANEXAMIC 1,000 MG/100ML-NACL 1,000 MG in SALINE 1 100ML.BAG IVPB PRN
[2024-01-15] MEDS: MELOXICAM 7.5 MG TAB PO PRN (08:48)
[2024-01-15] MEDS: ACETAMINOPHEN TAB 500 MG TAB PO PRN (08:48)
[2024-01-15] MEDS: LACTATED RINGERS 1,000 ML IV SCH (08:50)
[2024-01-15] MEDS: DEXAMETHASONE SOD PHOSPHATE 4 MG/ML 1 ML VIAL IV ONE (09:00)
[2024-01-15] MEDS: ONDANSETRON 4 MG/2 ML VIAL IVP ONE (09:00)
[2024-01-15] MEDS: fentaNYL (PF) 50 MCG/ML 2 ML AMP IVP ONE (09:12)
--- NOTE | 2024-01-15 09:27 | P.ANPRN ---
Procedure Note - Anesthesia - Nerve Block Performed Right Interscalene Single Time Out Performed: Yes Date of Procedure: 01/15/24 Procedure Start Time: 07:12 Procedure Stop Time: 07:17 Location of Patient: PreOp Indication: Acute Post-Operative Pain, Analgesia, Requested by Surgeon Sedation Type: Sedate with meaningful contact maintained Preparation: Sterile Prep Position: Sitting Catheter: None Needle Types: Pajunk Needle Gauge: 21 Ultrasound used to visualize needle placement: Yes Ultrasound used to observe medication spread: Yes Injectate: 0.5% Ropivacaine (see comment for volume) (Ropin 15ml +decadron 4mg . Nerve stimulation absent @ 0.5 ma &0.1ms.) Blood Aspirated: No Pain Paresthesia on Injection Noted: No Resistance on Injection: Normal Image Stored and Saved: Yes Events: Uneventful and Well Tolerated
[2024-01-15] MEDS ORDERED: SUGAMMADEX SODIUM 200 MG/2 ML SDV IV ONE (11:08)
[2024-01-15] MEDS ORDERED: SUCCINYLCHOLINE CHLORIDE 200 MG/10 ML VIAL IV ONE (11:08)
[2024-01-15] MEDS ORDERED: TRANEXAMIC 1,000 MG/100ML-NACL PREMIX BAG ONE (11:08)
[2024-01-15] MEDS ORDERED: ROPIVACAINE 5 MG/ML 30 ML VIAL ONE (11:08)
[2024-01-15] MEDS ORDERED: fentaNYL (PF) 50 MCG/ML 2 ML AMP ONE (11:08)
[2024-01-15] MEDS ORDERED: DEXAMETHASONE SOD PHOSPHATE 4 MG/ML 1 ML VIAL ONE (11:08)
[2024-01-15] MEDS ORDERED: PROPOFOL 10 MG/ML 20 ML VIAL IV ONE (11:08)
[2024-01-15] MEDS ORDERED: ROCURONIUM 10 MG/ML (5 ML VIAL) IV ONE (11:08)
[2024-01-15] MEDS ORDERED: PHENYLEPHRINE-0.9% NACL SYG 1,000 MCG/10 ML SYRINGE ONE (11:08)
[2024-01-15] MEDS ORDERED: LIDOCAINE 1% INJ 10MG/ML (20 ML MDV) ONE (11:08)
[2024-01-15] MEDS ORDERED: PHENYLEPHRINE 10 MG/ML VIAL ONE (11:08)
[2024-01-15] MEDS ORDERED: ePHEDrine 50 MG/ML 1 ML VIAL ONE (11:08)
[2024-01-15] MEDS: LACTATED RINGERS 1,000 ML IV ONE (11:30)
[2024-01-15] MEDS ORDERED: hydrOXYzine pamoate 25 MG CAP PO PRN (13:06)
[2024-01-15] MEDS ORDERED: SENNOSIDES-DOCUSATE SODIUM 1 EACH TAB PO PRN (13:06)
[2024-01-15] MEDS ORDERED: HYDROmorphone 0.5 MG/0.5 ML SYRINGE IVP PRN ×2 (13:06)
--- NOTE | 2024-01-15 13:28 | P.OP ---
Date of Procedure: 01/15/24 Preoperative Diagnosis: Severe right glenohumeral joint osteoarthrosis Postoperative Diagnosis: Same Procedure(s) Performed: Right total shoulder arthroplasty Implants: [employer] size 10/mini press-fit humeral stem, 46 x 21mm humeral head, Size 3 central peg glenoid. Anesthesia: [facility], [facility] Surgeon: Rohan Rawls Maintainer Operator #1: Gutierrez Heart Estimated Blood Loss (ml): 100 Pathology: none sent Condition: stable Disposition: PACU Indications for Procedure: The patient is a 64-year-old female who presents with progressive right shoulder pain secondary to osteoarthrosis despite conservative measures. A discussion of the risks and benefits of operative intervention versus continued conservative measures was made with patient she opted to proceed with surgery. Operative risks to include infection, neurovascular injury, development of blood clots, fracture, possible component loosening/failure need for subsequent procedures was discussed. Informed consent was obtained. Operative Findings: As below Description of Procedure: The patient was brought to the operating room, and after induction of general anesthesia was placed in the beachchair position. The bony prominences were appropriately padded. The right upper extremity was prepped and draped in normal fashion. A deltopectoral incision was then made lateral to the coracoid process extending approximately 12 cm. The skin was incised sharply. Subcutaneous tissues were divided bluntly. Electrocautery was used for hemostasis. The deltopectoral interval was identified and the cephalic vein ge ntly retracted laterally with the deltoid. Subdeltoid adhesions were bluntly dissected. A self-retaining retractor was placed. The clavipectoral fascia was opened and the conjoined tendon gently retracted medially. The upper one third of the pectoralis major was released to help facilitate exposure. The biceps was noted to previously have been ruptured. The rotator interval was opened. A subscapularis peel was performed and this was tagged with #2 Ethibond suture. The humeral head was then exposed releasing the capsule off the humeral neck. The shoulder was gently dislocated. A starting hole was made in the head in line with the humeral shaft. The shaft was reamed by hand up to 10 mm. There is good distal chatter. The cutting guide was placed planning on a cut flush with the rotator cuff insertion and 30 of retroversion. The cutting block was pinned in place. The humeral head cut was then made. This measured most appropriately at 46 x 21 mm. Residual inferior osteophytes were carefully removed flush with the [place] cortical bone. A posterior glenoid retractor was placed. The glenoid was then exposed releasing the labrum from the 12 to 6 o'clock position. Residual labral tissue was removed. The glenoid sized most appropriately at size 3. A guidewire was then inserted planning on the appropriate version. The glenoid was reamed down to a bleeding bony surface. The central peg hole was drilled. The alignment guide was placed in the peripheral peg holes drilled. The trial size 3 glenoid was placed and was fully seated. There was good anterior to posterior and inferior to superior fit. The trial component was removed. Pulsatile lavage was utilized. The bony surface was dried. The peripheral peg holes were then pressurized with cement utilizing a syringe. Excess cement was removed. A central pegged glenoid was then placed and was fully seated. This was gently impacted. This was held in place until the cement had sufficiently hardened. Attention was then paid again towards preparing the proximal humerus. The appropriate broach was placed in 30 of retroversion and was fully seated. An eccentric 46 x 21mm humeral head was placed. The shoulder was gently reduced. It was taken through a range of motion. It was felt to be stable in flexion and extension with internal and external rotation. I felt there was adequate congregation of soft tissue tension. The shoulder was gently dislocated. The trial components were then removed. A #2 Ethibond was placed laterally for reattachment of the lesser tuberosity. The humeral stem was inserted in 30 of retroversion and was fully seated. There was good rotational stability. The eccentric 46 x 21mm humeral head was gently impacted. The shoulder was then gently reduced and taken through range of motion and was felt to be stable. Pulsatile lavage was utilized. Lesser tuberosity was reattached utilizing #2 Ethibond suture. The rotator interval was closed with #2 Ethibond suture. She had minimal drainage at this point therefore a deep drain was not placed. The deltopectoral interval was closed with interrupted 2-0 Vicryl sutures. The subcu tissues were reapproximated with interrupted 2-0 Vicryl sutures. The skin was reapproximated with 3-0 subcuticular Prolene suture. Steri-Strips were applied. A sterile dressing was applied in addition to a sling. The patient was then awoken from general anesthesia and transferred to recovery room in good condition. Blood loss was estimated at 100mL. No complications were incurred. Sponge and needle counts were correct at the end the case. Gutierrez KILGORE assisted during the major components the case to include positioning, exposure, resection, implantation, and closure.
--- NOTE | 2024-01-15 14:39 | XR ---
EXAMINATION TYPE: XR shoulder limited RT DATE OF EXAM: 01/15/2024 2:10 PM CLINICAL INDICATION:Female, 64 years old with history of s/p right total shoulder arthroplasty; [facility] COMPARISON: 10/31/2022 TECHNIQUE: XR shoulder limited RT; examined in AP, internally rotated and scapular Y projections. FINDINGS: Shoulder arthroplasty with hardware intact. Subcutaneous lucencies compatible with recent surgery. No evidence for fracture. Hardware appears in tact The remaining portions of the visualized chest are unremarkable. IMPRESSION: Post arthroplasty changes with hardware intact. No evidence of fracture.
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
[2024-01-15] MEDS: HYDROcodone/APAP 5-325MG 1 EACH TAB PO PRN (19:37)
[2024-01-15] MEDS: GABAPENTIN 100 MG CAP PO SCH (22:46)
[2024-01-16] MEDS: HYDROcodone/APAP 5-325MG 1 EACH TAB PO PRN (02:48)
[2024-01-16] MEDS: LEVOTHYROXINE 100 MCG TAB PO SCH (06:13)
[2024-01-16 07:39] VITALS: BP 125/84; PULSE 67; TEMP 98.1
[2024-01-16] MEDS: ATORVASTATIN 10 MG TAB PO SCH (08:43)
[2024-01-16] MEDS: METOPROLOL SUCCINATE (ER) 25 MG TAB.ER.24H PO SCH (08:44)
[2024-01-16] MEDS: NIFEdipine XL 30 MG TAB.ER.24 PO SCH (08:44)
[2024-01-16 09:24] LABS: BUN/Creat Ratio 18.83 Ratio (12.00-20.00); Blood Urea Nitrogen 11.3 mg/dL (9.0-27.0); Calcium 8.9 mg/dL (8.7-10.3); Carbon Dioxide 25.9 mmol/L (21.6-31.8); Chloride 104 mmol/L (96-109); Glucose 113 mg/dL (70-110); Potassium 3.7 mmol/L (3.5-5.5); Sodium 139 mmol/L (135-145)
[2024-01-16 11:17] VITALS: RESP 16
[2024-01-16 11:37] LABS: Basophils % (A) 0 %; Eosinophils % (A) 0 %; HCT 34.7 % (34.0-46.0); HGB 11.4 gm/dL (11.4-16.0); Lymphocytes # (A) 1.1 k/uL (1.0-4.8); Lymphocytes % (A) 18 %; MCH 31.2 pg (25.0-35.0); MCHC 32.8 g/dL (31.0-37.0); MCV 95.1 fL (80.0-100.0); Monocytes # (A) 0.5 k/uL (0-1.0); Monocytes % (A) 8 %; Neutrophils # (A) 4.5 k/uL (1.3-7.7); Neutrophils % (A) 73 %; Platelet Count 137 k/uL (150-450); RBC 3.65 m/uL (3.80-5.40); RDW 12.9 % (11.5-15.5); WBC 6.2 k/uL (3.8-10.6)
--- NOTE | 2024-01-16 11:59 | P.PN ---
Subjective Progress Note Date: 01/16/24 64-year-old male with history of HLD, hypothyroidism, HTN, presented to [facility] for elective surgery. She underwent right total shoulder arthroplasty on 01/14. [facility] has been consulted for medical management. 01/15 Patient was seen and examined. Pain well controlled. Looking forward to going home. No complaints. CBC RBC 3.65 Plt 137. BMP glu 113. General: non toxic, no distress, appears at stated age Derm: warm, dry Head: atraumatic, normocephalic, symmetric Eyes: EOMI, no lid lag, anicteric sclera Mouth: no lip lesion, mucus membranes moist Cardiovascular: good distal perfusion in all 4 extremities Lungs: breathing comfortably, no accessory muscle use Ext: no gross muscle atrophy, no edema, no contractures Neuro: no focal neuro deficits Psych: Alert, oriented, appropriate affect Based on my assessment of this patient, this patient meets a moderate complexity level of care. Patient is POD 1 of right total shoulder arthroplasty that poses a threat to life or bodily function. Thrombocytopenia: Mild. Unknown etiology. Outpatient workup. HTN: Nifedipine 30 mg PO QD. Metoprolol 25 mg PO QD. HLD: Lovastatin 20 mg PO QD. Hypothyroidism Synthroid 100 mcg PO QD. Medically stable for discharge. CODE STATUS: FULL CODE DVT Prophylaxis: GI Prophylaxis: SCD Designated medical POA if patient is not able to make medical decisions for themselves: I have reviewed the following automation consultant notes: Orthopedic Sx. I have reviewed the results of the following tests: CBC, BMP. I have ordered the following tests: I have discussed the care of this patient with the following independent historian: I have independently interpreted the following test below: I have discussed the management of this patient with the following physician: Objective - Vital Signs Vital signs: Vital Signs Temp 98.1 F 01/16/24 07:13 Pulse 67 01/16/24 07:13 Resp 16 01/16/24 10:47 BP 125/84 01/16/24 07:13 Pulse Ox 99 01/16/24 07:13 FiO2 Intake & Output 01/15/24 01/16/24 01/16/24 18:59 06:59 18:59 Intake Total 1550 240 Output Total 100 Balance 1450 240 Weight 61.8 kg Intake: IV 1550 Oral 240 Output: Estimated Blood Loss 100 Other: Voiding Method Toilet # Voids 1 3 - Labs CBC & Chem 7: 01/16/24 04:48 01/16/24 04:48 Labs: Abnormal Lab Results - Last 24 Hours (Table) 01/16/24 01/16/24 Range/Units 04:48 04:48 RBC 3.65 L (3.80-5.40) m/uL Plt Count 137 L (150-450) k/uL Glucose 113 H (70-110) mg/dL
--- NOTE | 2024-01-16 12:08 | P.DS ---
Providers Date of admission: 01/15/2024 Expected date of discharge: 01/16/24 Attending physician: Rohan Rawls Consults: 01/15/24 13:10 Consult Physician Routine Consulting Provider: Licha Higgins Consult Reason/Comments: Medical Management s/p right total shoulder arthroplasty Do you want consulting provider notified?: Yes Primary care physician: Tonio Mishra Hospital Course: Date of admission: 01/15/2024 Date of discharge: 01/16/2024 Admission diagnosis: severe right glenohumeral joint osteoarthrosis Discharge diagnosis: same Attending physician: Dr. Rawls Surgical procedures:right total shoulder arthroplasty Brief history: Patient is a 64-year-old female with a history of progressive primary right glenohumeral joint osteoarthrosis. At this point patient has failed conservative treatment measures and has opted to proceed with a elective right total shoulder arthroplasty. Hospital course: Details of patient's surgery can be found in operative report. Patient tolerated the procedure well and was subsequently transported to orthopedic floor. Patient's orthopeidc and medical care was provided daily. Patient had daily laboratory tests performed for evaluation of overall blood counts. Patient had daily physical therapy to include strengthening range of motion as well as education with walker ambulation. Patient was treated with Xarelto for their postoperative DVT prophylaxis during their inpatient stay. Patient was noted to have a relatively uneventful postoperative course. Patient reported satisfactory pain control with oral pain medications by postoperative day 1. Patient showed satisfactory progress with physical therapy. Patient moved steadily through the program and had no difficulty meeting the goals by postoperative day 1. Given patient's otherwise satisfactory course and having met physical therapy goals, plan is to discharge patient home on postoperative day 1. Discharge condition/disposition: Patient will be discharged home in stable condition. Discharge medications: Instructions are given on resumption of patient's normal daily medications per primary care recommendation, in addition patient will be prescribed [place]; senna; aspirin 320 mg daily 30 days. Orthopedic Discharge Instructions: 1. Wound care and infection precautions, keep incision dry and covered while showering, no lotions, creams, moisturizers. No soaking, pools, hot tubs. Do not scrub over incision. 2. non-weight bearing right upper extremity. 3. Ice when necessary. Do not exceed 20 minutes per hour with ice pack. 4. Utilize sling to right upper extremity until seen at first follow up appointment. 5. Pain meds and anticoagulants per prescription. 6. Pain medication has potential to cause constipation. Increase oral fluid and fiber intake. Contact primary care provider if you have not had a bowel movement within 48 hours after discharge. 7. No anti-inflammatory medication until discussed at first post operative visit, this including Motrin, Aleve, Mobic, Diclofenac. 8. Follow up in office at 2 weeks postop with Naveen Lassiter PA-C / Gutierrez Heart PA-C 9. Follow up with your primary care doctor 7-10 days after discharge. 10. Contact [facility] with any questions, . keep incision clean, dry, intact. While showering, cover steri-strips with Saran wrap. Keep steri-strips on until follow-up appointment in office in 2 weeks. Assessment: severe right glenohumeral joint osteoarthrosis Procedures: right total shoulder arthroplasty Patient Condition at Discharge: Good Plan - Discharge Summary Discharge Rx Participant: Yes New Discharge Prescriptions: New Aspirin 325 mg PO DAILY #30 tab HYDROcodone/APAP 5-325MG [[place] 5-325] 1 tab PO Q6HR PRN #28 tab PRN Reason: Pain Sennosides/Docusate Sodium [Senna Plus 8.6-50 mg Softgel] 1 each PO DAILY #20 capsule Continue Gabapentin [Neurontin] 100 mg PO BID Baclofen [Lioresal] 10 mg PO BID Multivitamins, Thera [Multivitamin (formulary)] 1 tab PO DAILY Lovastatin [Mevacor] 20 mg PO DAILY Ubidecarenone [Co Q-10] 200 mg PO DAILY Magnesium Oxide [Salter] 500 mg PO DAILY Nasal Wash 1 spray EA NOSTRIL BID Fluticasone Nasal [place] [Flonase Nasal [place]] 1 - 2 spray EA NOSTRIL DAILY PRN PRN Reason: Congestion Metoprolol Succinate (ER) [Toprol XL] 25 mg PO QAM Multivit-Min/Folic Acid/Biotin [Hair, Skin and Nails Softgel] 1 dose PO DAILY Menthol [Biofreeze] 1 applic TOPICAL DAILY PRN PRN Reason: Pain Ketoconazole 2% Shampoo [Nizoral] 1 dose TOPICAL DAILY PRN PRN Reason: dermatitis on scalp [place]-3 Fatty Acids [[place]-3] 1,000 mg PO DAILY Levothyroxine Sodium 100 mcg PO QAM NIFEdipine XL [Procardia XL] 30 mg PO QAM Discharge Medication List Baclofen [Lioresal] 10 mg PO BID 02/05/19 [History] Gabapentin [Neurontin] 100 mg PO BID 02/05/19 [History] Lovastatin [Mevacor] 20 mg PO DAILY 02/05/19 [History] Magnesium Oxide [Salter] 500 mg PO DAILY 02/05/19 [History] Multivitamins, Thera [Multivitamin (formulary)] 1 tab PO DAILY 02/05/19 [History] Ubidecarenone [Co Q-10] 200 mg PO DAILY 02/05/19 [History] Fluticasone Nasal [place] [Flonase Nasal [place]] 1 - 2 spray EA NOSTRIL DAILY PRN 07/03/19 [History] Nasal Wash 1 spray EA NOSTRIL BID 07/03/19 [History] Levothyroxine Sodium 100 mcg PO QAM 01/09/23 [History] Menthol [Biofreeze] 1 applic TOPICAL DAILY PRN 01/09/23 [History] Metoprolol Succinate (ER) [Toprol XL] 25 mg PO QAM 01/09/23 [History] Multivit-Min/Folic Acid/Biotin [Hair, Skin and Nails Softgel] 1 dose PO DAILY 01/09/23 [History] [place]-3 Fatty Acids [[place]-3] 1,000 mg PO DAILY 01/09/23 [History] Ketoconazole 2% Shampoo [Nizoral] 1 dose TOPICAL DAILY PRN 01/11/24 [History] NIFEdipine XL [Procardia XL] 30 mg PO QAM 01/11/24 [History] Aspirin 325 mg PO DAILY #30 tab 01/16/24 [Rx] HYDROcodone/APAP 5-325MG [[place] 5-325] 1 tab PO Q6HR PRN #28 tab 01/16/24 [Rx] Sennosides/Docusate Sodium [Senna Plus 8.6-50 mg Softgel] 1 each PO DAILY #20 capsule 01/16/24 [Rx] Follow up Appointment(s)/Referral(s): Gutierrez Heart, RAMESH [PHYSICIAN RADIOLOGIC ELECTRONIC SPECIALIST] - 2 Weeks Patient Instructions/Handouts: Shoulder Arthroplasty (DC), Shoulder Arthroplasty (GEN) Activity/Diet/Wound Care/Special Instructions: Orthopedic Discharge Instructions: 1. Wound care and infection precautions, keep incision dry and covered while showering, no lotions, creams, moisturizers. No soaking, pools, hot tubs. Do not scrub over incision. 2. non-weight bearing right upper extremity. 3. Ice when necessary. Do not exceed 20 minutes per hour with ice pack. 4. Utilize sling to right upper extremity until seen at first follow up appointment. 5. Pain meds and anticoagulants per prescription. 6. Pain medication has potential to cause constipation. Increase oral fluid and fiber intake. Contact primary care provider if you have not had a bowel movement within 48 hours after discharge. 7. No anti-inflammatory medication until discussed at first post operative visit, this including Motrin, Aleve, Mobic, Diclofenac. 8. Follow up in office at 2 weeks postop with Naveen Lassiter PA-C / Gutierrez Heart PA-C 9. Follow up with your primary care doctor 7-10 days after discharge. 10. Contact [facility] with any questions, . keep incision clean, dry, intact. While showering, cover steri-strips with Saran wrap. Keep steri-strips on until follow-up appointment in office in 2 weeks.
--- NOTE | 2024-01-16 12:12 | P.PN ---
Subjective Progress Note Date: 01/16/24 Principal diagnosis: severe right glenohumeral joint osteoarthrosis patient seen at bedside this morning sitting up was sleeping present right upper extremity and bulking dressing present to right shoulder. Patient says she has been up walking several times since surgery yesterday. Patient says the pain is manageable when she is resting in bed. Sometimes the pain does increase to 5 or 6 out of 10 when she moves. Patient says she has urinated several times since surgery yesterday without issue. Patient says she has not had bowel movement yethowever, patient says she has been passing gas. Patient denies chest pain, fever, shortness of breath, nausea, vomiting, change in vision, loss of bowel/bladder control. Objective - Vital Signs Vital signs: Vital Signs Temp 98.1 F 01/16/24 07:13 Pulse 67 01/16/24 07:13 Resp 16 01/16/24 10:47 BP 125/84 01/16/24 07:13 Pulse Ox 99 01/16/24 07:13 FiO2 Intake & Output 01/15/24 01/16/24 01/16/24 18:59 06:59 18:59 Intake Total 1550 240 Output Total 100 Balance 1450 240 Weight 61.8 kg Intake: IV 1550 Oral 240 Output: Estimated Blood Loss 100 Other: Voiding Method Toilet # Voids 1 3 - Exam right shoulder: Incision is clean, dry, and intact. sling present to the right upper extremity. The bulky dressing is in good condition. there is minimal soft tissue swelling and ecchymosis surrounding the medial and lateral aspects of the incision. Calf is soft, no tenderness with palpation. Plantar flexion, dorsiflexion, EHL, FHL are intact. Sensory exam to light touch throughout the extremity is intact, dorsal pedis pulses 2+. - Labs CBC & Chem 7: 01/16/24 04:48 01/16/24 04:48 Labs: Abnormal Lab Results - Last 24 Hours (Table) 01/16/24 01/16/24 Range/Units 04:48 04:48 RBC 3.65 L (3.80-5.40) m/uL Plt Count 137 L (150-450) k/uL Glucose 113 H (70-110) mg/dL Assessment and Plan Assessment: 1. severe right glenohumeral joint osteoarthrosis - Postoperative day #1 status post right total shoulder arthroplasty Plan: 1. severe right glenohumeral joint osteoarthrosis - right total shoulder arthroplasty performed yesterday, 01/15/2024. Patient stable at bedside this morning was sleeping present upper extremity and dressing present to the right shoulder. Plan for discharge home today. 2. Appreciate medical management 3. Pain management - [place]; gabapentin 4. GI prophylaxis - senna 5. DVT prophylaxis - [facility]. Going home with aspirin 325 mg daily 30 days 6. PT/OT - sling to right upper extremity all times. Okay to flex and extend right wrist/right elbow. 7. Encourage incentive spirometer use 8. Discharge planning - discharge home today Time with Patient: Less than 30
== END 2024-01-16 14:54 | disposition home or self-care (01) ==
LOC: OR 08:01 → 4SSUR 13:17 → OR 01-16 14:54
PROVIDERS: ATTEND Orthopaedic Surgery
DX: M19.011 Primary osteoarthritis, right shoulder (principal); M25.711 Osteophyte, right shoulder; J44.9 Chronic obstructive pulmonary disease, unspecified; K21.9 Gastro-esophageal reflux disease without esophagitis; I10 Essential (primary) hypertension; E78.5 Hyperlipidemia, unspecified; E07.9 Disorder of thyroid, unspecified; Z86.718 Personal history of other venous thrombosis and embolism; Z98.891 History of uterine scar from previous surgery; Z90.49 Acquired absence of other specified parts of digestive tract; Z90.89 Acquired absence of other organs; Z87.891 Personal history of nicotine dependence; Z83.3 Family history of diabetes mellitus; Z79.890 Hormone replacement therapy; Z79.84 Long term (current) use of oral hypoglycemic drugs; Z88.5 Allergy status to narcotic agent; Z88.9 Allergy status to unspecified drugs, medicaments and biological substances; Z79.899 Other long term (current) drug therapy
CPT/HCPCS: 64415; 80048; 85025; 73020; 23472; C1713; C1776; J1100; J0690 ×2; J2405; J3010

== ENCOUNTER → 2024-07-10 | Outpatient (CLI) | payer MEDICARE, OTHER ==
[2024-07-10 14:54] LABS: Basophils # (A) 0.03 X 10*3/uL (0.00-0.10); Eosinophils # (A) 0.09 X 10*3/uL (0.04-0.35); Eosinophils % (A) 2.9 %; HCT 40.1 % (37.2-46.3); HGB 13.5 g/dL (12.0-15.0); Lymphocytes # (A) 1.31 X 10*3/uL (0.90-5.00); Lymphocytes % (A) 42.1 %; MCH 31.2 pg (27.0-32.0); MCHC 33.7 g/dL (32.0-37.0); MCV 92.6 FL (80.0-97.0); Mean Platelet Volume 10.6 FL (9.5-12.2); Monocytes # (A) 0.28 X 10*3/uL (0.20-1.00); NRBC Per 100 WBC 0 X 10*3/uL (0.00-0.01); Neutrophils # (A) 1.39 X 10*3/uL (1.80-7.70); Neutrophils % (A) 44.7 %; Platelet Count 174 X 10*3/uL (140-440); RBC 4.33 X 10*6/uL (4.10-5.20); RDW 12.4 % (11.5-14.5); WBC 3.11 X 10*3/uL (4.50-10.00)
[2024-07-10 15:49] LABS: BUN/Creat Ratio 12.43 Ratio (12.00-20.00); Blood Urea Nitrogen 8.7 mg/dL (9.0-27.0); Carbon Dioxide 27.6 mmol/L (21.6-31.8); Chloride 105 mmol/L (96-109); Chol/HDL Ratio 2.23 Ratio; Glucose 92 mg/dL (70-110); LDL Cholesterol,Calculated 50.9 mg/dL (0.0-131.0); Potassium 4.3 mmol/L (3.5-5.5); Sodium 142 mmol/L (135-145); VLDL Calculation 15.34 mg/dL (5.00-40.00)
[2024-07-10 15:50] LABS: ALT 22 U/L (8-44); AST 22 U/L (13-35); Albumin 4.5 g/dL (3.8-4.9); Albumin/Globulin Ratio 2.37 Ratio (1.60-3.17); Alkaline Phosphatase 83 U/L (41-126); Calcium 9.7 mg/dL (8.7-10.3); Globulin 1.9 g/dL (1.6-3.3); T4, Free (Free Thyroxine) 1.51 ng/dL (0.80-1.80); Total Bilirubin 0.6 mg/dL (0.3-1.2); Total Protein 6.4 g/dL (6.2-8.2)
== END | disposition home or self-care (01) ==
LOC: LABWHC1 09:25
PROVIDERS: ATTEND Internal Medicine
CPT/HCPCS: 36415; 80053; 80061; 83036; 83735; 84439; 84443; 85025

== ENCOUNTER 2024-07-11 12:12 | Emergency (ER) | payer MEDICARE, OTHER ==
[2024-07-11 12:18] VITALS: RESP 18
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
[2024-07-11 13:25] VITALS: BP 121/77; PULSE 75; TEMP 97.9
== END 2024-07-11 13:26 | disposition home or self-care (01) ==
LOC: EC 12:12
CPT/HCPCS: 99282

== ENCOUNTER 2024-08-27 17:35 | Emergency (ER) | payer MEDICARE, OTHER ==
[2024-08-27 18:00] LABS: Glucose,Whole Blood 95 mg/dL (70-110)
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
[2024-08-27 18:32] LABS: Basophils % (A) 1 %; Eosinophils # (A) 0.1 k/uL (0-0.7); Eosinophils % (A) 3 %; HCT 39.4 % (34.0-46.0); HGB 13.3 gm/dL (11.4-16.0); Lymphocytes # (A) 1.2 k/uL (1.0-4.8); Lymphocytes % (A) 35 %; MCH 31.4 pg (25.0-35.0); MCHC 33.7 g/dL (31.0-37.0); MCV 93.1 fL (80.0-100.0); Mean Platelet Volume 8.6; Monocytes # (A) 0.1 k/uL (0-1.0); Monocytes % (A) 4 %; Neutrophils # (A) 1.8 k/uL (1.3-7.7); Neutrophils % (A) 55 %; Platelet Count 154 k/uL (150-450); RBC 4.23 m/uL (3.80-5.40); RDW 13.1 % (11.5-15.5); WBC 3.3 k/uL (3.8-10.6)
[2024-08-27 18:40] LABS: ALT 30 U/L (4-34); AST 36 U/L (14-36); African American GFR (CKD) >90 (>60 ml/min/1.73 sqM); Albumin 4.5 g/dL (3.5-5.0); Alkaline Phosphatase 96 U/L (38-126); Anion Gap 4 mmol/L; Blood Urea Nitrogen 11 mg/dL (7-17); Calcium 8.9 mg/dL (8.4-10.2); Carbon Dioxide 29 mmol/L (22-30); Chloride 105 mmol/L (98-107); Glucose 91 mg/dL (74-99); Non-African American GFR(CKD) >90 (>60 ml/min/1.73 sqM); Potassium 3.6 mmol/L (3.5-5.1); Sodium 138 mmol/L (137-145); Total Bilirubin 0.9 mg/dL (0.2-1.3)
[2024-08-27 18:46] LABS: INR 1.1 (<1.2); Prothrombin Time 12.1 sec (10.0-12.5)
[2024-08-27 18:47] LABS: Partial Thromboplastin Time 24.2 sec (22.0-30.0)
--- NOTE | 2024-08-27 19:20 | CT ---
EXAMINATION TYPE: CT brain wo con DATE OF EXAM: 08/27/2024 6:46 PM COMPARISON: 08/01/2023. CLINICAL INDICATION: Female, 64 years old with history of chest pain, ams TECHNIQUE: Brain: Axial CT images of the brain were obtained with coronal and sagittal reformats created and rev iewed. Contrast used: None. Oral contrast used: None. CT DLP: 1047.4 mGycm, Automated exposure control for dose reduction was used. FINDINGS: Brain: Extra-axial spaces: No abnormal extra-axial fluid collections. Ventricular system: Within normal limits Cerebral parenchyma: Encephalomalacia the bilateral frontal lobes. This linear hyperdensity in the ri ght posterior frontal lobe not seen on prior on 08/01/2023. Remote injury to the left external capsule of the basal ganglia is similar to prior. Acute intraparenchymal hemorrhage or mass effect. The rem ainder of the donohue-white junctions are well differentiated. Cerebellum: Unremarkable. Mass effect: No evidence of midline shift. Intracranial vasculature: Atherosclerotic calcifications of the intracranial vessels. Soft tissues: Normal. Calvarium/osseous structures: No depressed skull fracture. Craniotomy changes. Paranasal sinuses and mastoid air cells: Mild scattered paranasal sinus disease. Visualized orbits: Bilateral aphakia IMPRESSION: Higher density seen within the sulcus of the right posterior frontal lobe etiology uncert ain. Further workup with MRI recommended. Not appreciated on 08/01/2023 Subtle malacia the bilateral f rontal lobes from prior injury. Findings could represent subacute blood products versus sequela prior injury since 08/01/2023. [facility], , 08/27/2024 7:18 PM
--- NOTE | 2024-08-27 19:21 | XR ---
EXAMINATION TYPE: XR chest 2V DATE OF EXAM: 08/27/2024 6:56 PM COMPARISON: Chest radiographs from CLINICAL INDICATION: Female, 64 years old with history of chest pain; [facility] TECHNIQUE: XR chest 2V Frontal and lateral views of the chest. FINDINGS: Lungs/Pleura: There is no evidence of pleural effusion, focal consolidation, or pneumothorax. Pulmonary vascularity: Unremarkable. Heart/mediastinum: Cardiomediastinal silhouette is unremarkable. Musculoskeletal: No acute osseous pathology. Right shoulder arthroplasty changes. IMPRESSION: No acute cardiopulmonary disease/process. [facility], , 08/27/2024 7:18 PM
[2024-08-27 19:34] LABS: Appearance,Urine Clear (Clear); Bilirubin,Urine Negative (Negative); Blood,Urine Small (Negative); Color,Urine Colorless; Glucose,Urine (UA) Negative (Negative); Ketones,Urine Negative (Negative); Leukocyte Esterase,Urine Negative (Negative); Nitrite,Urine Negative (Negative); Protein,Urine Negative (Negative); RBC,Urine 3 /hpf (0-5); Specific Gravity,Urine 1.004 (1.001-1.035); Urobilinogen,Urine <2.0 mg/dL (<2.0); WBC,Urine 2 /hpf (0-5)
[2024-08-27 23:06] VITALS: BP 136/89; PULSE 72; RESP 17; TEMP 98.9
== END 2024-08-27 23:31 | disposition home or self-care (01) ==
LOC: EC 17:35
DX: R41.82 Altered mental status, unspecified (principal); Z87.891 Personal history of nicotine dependence; Z88.5 Allergy status to narcotic agent; Z88.8 Allergy status to other drugs, medicaments and biological substances
CPT/HCPCS: 36415; 70450; 71046; 80053; 81001; 84484; 85025; 85610; 85730; 93005; 99285

== ENCOUNTER 2024-08-30 15:01 | Emergency (ER) | payer MEDICARE, OTHER ==
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
[2024-08-30 17:20] VITALS: BP 127/89; PULSE 62; RESP 18; TEMP 98.5
== END 2024-08-30 17:00 | disposition home or self-care (01) ==
LOC: EC 15:01
DX: T50.991A Poisoning by other drugs, medicaments and biological substances, accidental (unintentional), initial encounter (principal); Z87.891 Personal history of nicotine dependence; Z88.5 Allergy status to narcotic agent; Z88.8 Allergy status to other drugs, medicaments and biological substances; Z90.49 Acquired absence of other specified parts of digestive tract; Z90.89 Acquired absence of other organs
CPT/HCPCS: 99283

== ENCOUNTER → 2024-09-13 | Outpatient (CLI) | payer MEDICARE, OTHER ==
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
== END | disposition home or self-care (01) ==
LOC: RADMRIMAIN 09:52
PROVIDERS: ATTEND Internal Medicine
DX: S06.9XAA Unspecified intracranial injury with loss of consciousness status unknown, initial encounter (principal); H53.9 Unspecified visual disturbance; R90.82 White matter disease, unspecified; G93.89 Other specified disorders of brain
CPT/HCPCS: 70553; A9585

== ENCOUNTER → 2024-10-17 | Outpatient (CLI) | payer MEDICARE, OTHER ==
--- NOTE | 2024-10-17 16:08 | XR ---
EXAMINATION TYPE: XR chest 2V DATE OF EXAM: 10/17/2024 3:47 PM COMPARISON: Chest radiographs from 08/27/2024, CT low-dose lung 12/19/2023 TECHNIQUE: XR chest 2V Frontal and lateral views of the chest. CLINICAL INDICATION:Female, 64 years old with history of R63.4 ABNORMAL WEIGHT LOSS; FINDINGS: Lungs/Pleura: There is no evidence of pleural effusion, focal consolidation, or pneumothorax. Pulmonary vascularity: Unremarkable. Heart/mediastinum: Cardiomediastinal silhouette is unremarkable. Musculoskeletal: No acute osseous pathology. Right shoulder arthroplasty change. Left shoulder arthro zunilda. Scoliotic curvature of the thoracolumbar spine. Multilevel degenerative disc disease. IMPRESSION: No acute cardiopulmonary disease/process. [facility], , 10/17/2024 4:05 PM
== END | disposition home or self-care (01) ==
LOC: RADXRMAIN 15:31
PROVIDERS: ATTEND Internal Medicine
DX: R63.4 Abnormal weight loss (principal)
CPT/HCPCS: 71046

== ENCOUNTER → 2024-12-26 | Outpatient (CLI) | payer MEDICARE, OTHER ==
--- NOTE | 2024-12-26 15:33 | CTL ---
EXAMINATION TYPE: CT Low Dose Lung DATE OF EXAM: 12/26/2024 3:22 PM COMPARISON: 12/19/2023 CLINICAL INDICATION: Female, 64 years old with history of Z12.2 LUNG CA SCR Z87.891 FORMER SMOKER; pe rsonal tobacco use, history of tobacco use. TECHNIQUE: Multiple axial non-contrast scans were obtained from approximately the lung apices through the upper abdomen. Coronal and sagittal reformatted images were obtained. Low dose technique was uti lized. MIP were created on a separate workstation and submitted for review. CT DLP: 54.9 mGycm, Automated exposure control for dose reduction was used. CT Contrast: Contrast used: None Oral contrast used: None FINDINGS: Lack of intravenous contrast and low dose technique limits the evaluation of the vascular and soft ti ssue structures. LUNGS: No evidence of pulmonary fibrosis. No evidence of focal consolidation, pneumothorax or pleural effusion. Centrilobular emphysema changes. Nodules: RUL: None. RML: None. RLL: None. MARLON: None. LLL: None. AIRWAY: Patent and unremarkable. HEART: Size within normal limits. No significant coronary artery calcifications. MEDIASTINUM: No gross evidence of adenopathy. VASCULATURE: No aortic aneurysm. MUSCULOSKELETAL: Moderate to severe disc degeneration changes are present throughout the thoracolumba r spine. Right shoulder arthroplasty changes partially visualized. Scoliosis changes to the spine. SOFT TISSUES/LYMPH NODES: Unremarkable. LOWER NECK: No significant findings. UPPER ABDOMEN: No significant findings. IMPRESSION: 1. No clinically significant pulmonary nodules. 2. Mild emphysema. CT LUNG RAD AND CT CHEST RECOMMENDATION: Lung-Rad 2 Benign Appearance or Behavior: Continue annual sc reening with LDCT in 12 months. S Modifier (other clinically significant findings): None Recommend smoking cessation (if current smoker), or continuation of smoking cessation (if prior smoke r). Annual screening for lung cancer with low-dose computed tomography is recommended in adults ages 55 to 77 years who have a 30 pack-year smoking history and currently smoke or have quit within the pa st 15 years. Screening should be discontinued once a person has not smoked for 15 years or develops a health problem that substantially limits life expectancy or the ability or willingness to have curat donald lung surgery. Lung rads 2021 [email or web address] [facility], , 12/26/2024 3:31 PM
== END | disposition home or self-care (01) ==
LOC: RADCTMAIN 14:49
PROVIDERS: ATTEND Internal Medicine
DX: Z12.2 Encounter for screening for malignant neoplasm of respiratory organs (principal); J43.2 Centrilobular emphysema; Z87.891 Personal history of nicotine dependence
CPT/HCPCS: 71271

== ENCOUNTER → 2025-01-01 | Outpatient (CLI) | payer MEDICARE, OTHER ==
--- NOTE | 2025-01-02 07:53 | XR ---
EXAMINATION TYPE: XR abdomen 1V DATE OF EXAM: 01/01/2025 3:49 PM COMPARISON: None CLINICAL INDICATION: Female, 64 years old with history of R10.9 UNSPECIFIED ABDOMINAL PAIN; PHH, pain TECHNIQUE: One radiographic view of the abdomen was obtained. FINDINGS: Degenerated with levoconvex scoliosis centered at the upper lumbar spine. Atherosclerotic c alcifications throughout the abdominal aorta. Pelvic phleboliths noted. No dilated small bowel. Scatt ered afap-be-htbapjhp stool. Bowel content largely obscures the renal shadows. IMPRESSION: Nvou-xr-tecaclen overall stool burden. Nonobstructive bowel gas pattern. [facility], Workstation: [facility], 01/02/2025 7:51 AM
== END | disposition home or self-care (01) ==
LOC: RADXRMAIN 15:30
PROVIDERS: ATTEND Nurse Practitioner Family
DX: R19.5 Other fecal abnormalities (principal); R14.0 Abdominal distension (gaseous); R10.9 Unspecified abdominal pain
CPT/HCPCS: 74018

== ENCOUNTER → 2025-01-23 | Outpatient (CLI) | payer MEDICARE, OTHER ==
[2025-01-23 16:43] LABS: African American GFR (CKD) >90 (>60 ml/min/1.73 sqM); Blood Urea Nitrogen 14 mg/dL (7-17); Non-African American GFR(CKD) >90 (>60 ml/min/1.73 sqM)
--- NOTE | 2025-01-23 17:32 | CT ---
EXAMINATION TYPE: CT urogram wo/w con DATE OF EXAM: 01/23/2025 5:24 PM COMPARISON: None. CLINICAL INDICATION: Female, 65 years old with history of R31.1 BENIGN ESSENTIAL MICROSCOPIC HEMATURI A, HEMATURIA, TECHNIQUE: CT Urography was performed with unenhanced followed by enhanced images of the kidneys, ure ters and urinary bladder. Delayed images were obtained. 3D reconstruction performed on a separate w orkstation. IV CONTRAST: without and with IV Contrast, patient injected with 100 ml mL of Isovue 370. (None if em pty) CT DLP: 998.6 mGycm, Automated exposure control for dose reduction was used. FINDINGS: KIDNEYS/BLADDER: No hydronephrosis. No nephrolithiasis. No disctinct renal mass. Urinary bladder g rossly unremarkable. LUNG BASES-: No visible nodule. No infiltrate. LIVER/GB: No calcified gallstones. No space occupying hepatic lesion. Biliary tree is of normal ca liber. PANCREAS: No inflammation. No distinct mass. SPLEEN: No splenic enlargement. No lesion seen. ADRENALS: No nodule. No thickening. BOWEL: Normal appendix. Normal bowel caliber. No inflammation. GENITAL ORGANS: No gross abnormality. LYMPH NODES: No greater than 1cm abdominal or pelvic lymph nodes are appreciated. AORTA: Atheromatous and ectatic change of the abdominal aorta. Mild luminal narrowing proximal right renal artery. OSSEOUS STRUCTURES: Severe degenerative changes lumbar spine. OTHER: No significant additional abnor mality is seen. IMPRESSION: 1. No significant abnormality to account for the patient's symptoms. 2.Mild luminal narrowing proximal right renal artery. [facility], , 01/23/2025 5:30 PM
== END | disposition home or self-care (01) ==
LOC: RADCTMAIN 15:29
PROVIDERS: ATTEND Urology
DX: N28.89 Other specified disorders of kidney and ureter (principal); R31.1 Benign essential microscopic hematuria
CPT/HCPCS: 82565; 84520; 74178; 36415; 74400; Q9967